=== PATIENT | male | born 1975 | race Caucasian/White ===

== ENCOUNTER 2021-01-16 09:46 | Outpatient (REF) | payer OTHER, SELFPAY ==
[2021-01-16 10:40] LABS: MANUAL DIFF FLAG NO
[2021-01-16 10:44] LABS: Basophils Percent Auto 0.2 % (0-2); Eosinophils Absolute Auto 0.1 X10*3/uL (0.0-0.4); Eosinophils Percent Auto 2.9 % (0-4); Hematocrit 45.9 % (42-52); Hemoglobin 15.8 g/dl (14.0-18.0); Imm Gran Abs Auto 0.01 X10*3/uL (0.00-0.03); Imm Gran Pct Auto 0.2 % (0.0-0.4); Lymphocytes Absolute Auto 1.5 X10*3/uL (1.2-4.9); Lymphocytes Percent Auto 30.1 % (20-40); Mean Corpuscular HGB Conc 34.4 g/dl (31.0-36.0); Mean Corpuscular Volume 87.3 fL (80-98); Mean Platelet Volume 10.8 fL (9.4-12.4); Monocytes Absolute Auto 0.4 X10*3/uL (0.1-1.2); Monocytes Percent Auto 8.7 % (2-11); Neutrophils Absolute Auto 2.8 X10*3/uL (2.0-8.3); Neutrophils Percent Auto 57.9 % (45-73); Platelet Count 179 X10*3/uL (160-400); Red Blood Count 5.26 X10*6/uL (4.60-5.80); Red Cell Distribution Width 12.1 % (11.0-16.0); White Blood Count 4.8 X10*3/uL (4.8-10.8)
[2021-01-16 11:06] LABS: Alanine Aminotransferase 31 U/L (0-40); Albumin Level 4.6 g/dL (3.5-5.0); Alkaline Phosphatase 72 U/L (39-117); Anion Gap 12 (12-20); Aspartate Amino Transferase 17 U/L (5-37); Bilirubin Total 0.7 mg/dL (0.0-1.0); Blood Urea Nitrogen 13 mg/dL (9-16); Calcium 9.8 mg/dL (8.4-10.2); Carbon Dioxide 27 mmol/L (22-29); Chloride 104 mmol/L (96-108); Cholesterol 187 mg/dL; Estimated Glomerular Filt Rate > 60; Glucose Fasting 117 mg/dL (60-99); HDL Cholesterol 44 mg/dL; LDL Cholesterol Calculated 114 mg/dl; Potassium 4.4 mmol/L (3.3-5.1); Sodium 139 mmol/L (135-145); Total Protein 7.3 g/dL (6.5-8.0); Triglycerides 145 mg/dL
== END 2021-01-16 09:47 | disposition home or self-care (01) ==
LOC: HO.LAB 09:46
PROVIDERS: PCP Internal Medicine; Visit Provider Internal Medicine
DX: Z00.00 Encounter for general adult medical examination without abnormal findings (principal); Z82.49 Family history of ischemic heart disease and other diseases of the circulatory system
CPT/HCPCS: 36415; 80053; 80061; 85025

== ENCOUNTER 2023-12-29 12:13 | Outpatient (REF) | payer BC, SELFPAY ==
[2023-12-29 12:34] LABS: MANUAL DIFF FLAG NO
[2023-12-29 13:44] LABS: Basophils Percent Auto 0.4 % (0-2); Eosinophils Absolute Auto 0.1 X10*3/uL (0.0-0.4); Hematocrit 44.6 % (42.0-52.0); Hemoglobin 15.7 g/dl (14.0-18.0); Imm Gran Abs Auto 0.01 X10*3/uL (0.00-0.03); Imm Gran Pct Auto 0.2 % (0.0-0.4); Lymphocytes Absolute Auto 1.4 X10*3/uL (1.2-4.9); Mean Corpuscular HGB Conc 35.2 g/dl (31.0-36.0); Mean Corpuscular Hemoglobin 30.4 pg (27.0-33.0); Mean Corpuscular Volume 86.3 fL (80.0-98.0); Mean Platelet Volume 10.9 fL (9.4-12.4); Monocytes Absolute Auto 0.4 X10*3/uL (0.1-1.2); Monocytes Percent Auto 7.6 % (2-11); Neutrophils Absolute Auto 2.7 x10*3/uL (2.0-8.3); Neutrophils Percent Auto 57.8 % (45-73); Platelet Count 177 X10*3/uL (160-400); Red Blood Count 5.17 X10*6/uL (4.60-5.80); Red Cell Distribution Width 12.1 % (11.0-16.0); White Blood Count 4.6 X10*3/uL (4.8-10.8)
[2023-12-29 13:58] LABS: Alanine Aminotransferase 34 U/L (0-40); Albumin Level 4.4 g/dL (3.5-5.0); Alkaline Phosphatase 66 U/L (39-117); Anion Gap 10 (12-20); Aspartate Amino Transferase 17 U/L (5-37); Bilirubin Total 0.5 mg/dL (0.0-1.0); Blood Urea Nitrogen 12 mg/dL (9-16); Calcium 9.6 mg/dL (8.4-10.2); Carbon Dioxide 28 mmol/L (22-29); Chloride 106 mmol/L (96-108); Cholesterol 195 mg/dL (<200); Estimated Glomerular Filt Rate > 60; Glucose Random 110 mg/dL (60-115); HDL Cholesterol 42 mg/dL (>40); LDL Cholesterol Calculated 116 mg/dL (<100); Magnesium 2.2 mg/dL (1.6-2.6); Potassium 4.2 mmol/L (3.3-5.1); Sodium 140 mmol/L (135-145); Total Protein 7.3 g/dL (6.5-8.0); Triglycerides 188 mg/dL (<150)
== END 2023-12-29 12:14 | disposition home or self-care (01) ==
LOC: HO.LAB 12:13
PROVIDERS: PCP Internal Medicine; Visit Provider Internal Medicine
DX: E78.00 Pure hypercholesterolemia, unspecified (principal); K21.9 Gastro-esophageal reflux disease without esophagitis; R63.5 Abnormal weight gain; G25.81 Restless legs syndrome; Z86.79 Personal history of other diseases of the circulatory system
CPT/HCPCS: 36415; 80053; 80061; 83735; 85025

== ENCOUNTER 2025-03-03 13:57 | Outpatient (REF) | payer BC, SELFPAY ==
[2025-03-03 14:35] LABS: MANUAL DIFF FLAG NO
[2025-03-03 15:29] LABS: Hematocrit 44.9 % (42.0-52.0); Hemoglobin 15.4 g/dl (14.0-18.0); Imm Gran Abs Auto 0.03 X10*3/uL (0.00-0.03); Imm Gran Pct Auto 0.5 % (0.0-0.4); Lymphocytes Absolute Auto 1.3 X10*3/uL (1.2-4.9); Mean Corpuscular HGB Conc 34.3 g/dl (31.0-36.0); Mean Corpuscular Hemoglobin 29.8 pg (27.0-33.0); Mean Corpuscular Volume 87.0 fL (80.0-98.0); NRBC Abs Auto 0.000 X10*3/uL (0.0-0.012); NRBC Pct Auto 0.0 /100WBC (0.0-0.2); Platelet Count 162 X10*3/uL (160-400); Red Blood Count 5.16 X10*6/uL (4.60-5.80); White Blood Count 5.6 X10*3/uL (4.8-10.8)
[2025-03-03 15:54] LABS: Total Hemoglobin (HGBA1C) 4038.0015 umol/L
[2025-03-03 16:06] LABS: Alanine Aminotransferase 48 U/L (0-40); Albumin Level 4.6 g/dL (3.5-5.0); Alkaline Phosphatase 77 U/L (39-117); Anion Gap 12 (12-20); Aspartate Amino Transferase 25 U/L (5-37); Blood Urea Nitrogen 13 mg/dL (9-16); Calcium 10.0 mg/dL (8.4-10.2); Carbon Dioxide 29 mmol/L (22-29); Chloride 104 mmol/L (96-108); Cholesterol 214 mg/dL (<200); Estimated Glomerular Filt Rate > 60; HDL Cholesterol 43 mg/dL (>40); Potassium 4.0 mmol/L (3.3-5.1); Sodium 141 mmol/L (135-145); Total Protein 7.5 g/dL (6.5-8.0); Triglycerides 353 mg/dL (<150)
[2025-03-04 03:29] LABS: Syphilis Screen Nonreactive (Nonreactive)
[2025-03-04 03:52] LABS: HBS Num1 0.00 mIU/mL (0-7.99); HBc Num1 0.06 S/CO (0.00-0.79); HBsAGNum1 0.51 S/CO (0.00-0.99); HIV Num 1 0.04 S/CO (0.00-0.99); Hepatitis A Antibody IgM 0.17 Index (0-0.79); Hepatitis B Surface Antigen Negative (Negative); ~HepC Num1 0.08 S/CO (0.00-0.79); ~Hepatitis A Antibody IgM Nonreactive (Nonreactive); ~Hepatitis B Surface Antibody NONREACTIVE (Nonreactive); ~Hepatitis C Antibody Nonreactive (Nonreactive)
== END 2025-03-03 13:58 | disposition home or self-care (01) ==
LOC: HO.LAB 13:57
PROVIDERS: PCP Student in an Organized Health Care Education/Training Program; Visit Provider Student in an Organized Health Care Education/Training Program
DX: Z76.89 Persons encountering health services in other specified circumstances (principal); Z13.1 Encounter for screening for diabetes mellitus; H91.90 Unspecified hearing loss, unspecified ear; G47.33 Obstructive sleep apnea (adult) (pediatric)
CPT/HCPCS: 36415; 80053; 80061; 82306; 83036; 84443; 85025; 86704; 86706; 86709; 86780; 86803; 87340; 87389; 96127

== ENCOUNTER 2025-03-03 13:57 | Outpatient (AMB) | payer BC, SELFPAY ==
--- NOTE | 2025-03-03 13:59 | A.OFFPC_ITS ---
Vital Signs 03/03/25 14:02 Height 5 ft 10 in Weight 230 lb BMI 33.0 BP 122/54 L Blood Pressure Location Rt brachial Position Sitting Respiration 18 Pulse 106 H Pulse Source Pulse Oximeter Temp 97.5 F Temp Source Temporal Artery Scan Pulse Oximetry (%) 98 Oxygen Delivery Method Room Air Intake Visit Reasons: Annual / Dr Huynh Wan Support Specialist Required: No Accompanied by: Self / Same As Patient Allergies No Known Allergies Allergy (Verified 03/03/25 13:59) Tobacco use date assessed: 03/03/25 HPI HPI Comments History of Present Illness Details The patient is a 49-year-old male presenting with concerns about sleep apnea and associated symptoms. He reported having had a diagnosis of sleep apnea previously and is using a CPAP machine regularly. The patient mentioned that his use of CPAP is nightly, and he cannot imagine sleeping without it, indicating a level of dependency and adaptation to the treatment over time. During the visit, he also expressed concerns related to potential REM Sleep Behavior Disorder symptoms, as described by his . She has noticed instances where the patient appears to spaz out during sleep, occasionally resulting in striking her in his sleep. The patient's inquiry was whether these actions were of normal concern or needed further investigation. The conversation suggested these episodes are periodic and may be linked to REM Sleep Behavior Disorder, commonly associated with certain symptoms during the REM phase of sleep. The chronic management of the patient's sleep apnea with CPAP appears satisfactory with no additional acute complaints or modifications needed regarding the current treatment strategy. The patient did not report additional underlying medical conditions affecting his overall health. 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 1. Little interest or pleasure in doing things: not at all 2. Feeling down, depressed, or hopeless: not at all 3. Trouble falling or staying asleep, or sleeping too much: not at all 4. Feeling tired or having little energy: not at all 5. Poor appetite or overeating: not at all 6. Feeling bad about yourself - or that you are a failure or have let yourself or your family down: not at all 7. Trouble concentrating on things, such as reading the newspaper or watching television: not at all 8. Moving or speaking so slowly that other people could have noticed. Or the opposite - being so fidgety or restless that you have been moving around a lot more than usual: not at all 9. Thoughts that you would be better off or of hurting yourself in some way: not at all Total score: 0 Depression Screening Interpretation: Negative Depression Screening Done: Yes 18729 - PHQ-9 Billing: Yes Source: Developed by Drs. Denzel Bauer, Mere Moe, Hiram Yeh and colleagues, with an educational narendra from [employer]. Thrive Questionnaire Date Thrive assessed: 03/03/25 I am a: Patient What is your living situation today?: I have a steady place to live Within the past 12 months, did the food you bought not last and you didn't have the money to get more?: Never true Within the past 12 months, did you worry whether your food would run out before you got money to buy more?: Never true Do you have trouble paying for medicines?: No Do you have trouble getting transportation to medical appointments?: No Do you have trouble paying your heating and electricity bill?: No Do you have trouble taking care of your child, family member or friend?: No Do you have trouble with day-to-day activities such as bathing, preparing meals, shopping, managing finances, etc.?: No Are you currently unemployed and looking for a job?: No Are you interested in more education?: No THRIVE Score: 0 AUDIT C Alcohol Use Questionnaire (AUDIT-C) 1. How often do you have a drink containing alcohol?: Monthly or less 2. How many drinks containing alcohol do you have on a typical day when you are drinking?: 1 or 2 Total Score: 1 Score Reviewed/Action Taken: Yes UBALDO-7 AMB Questionnaire UBALDO-7 Date UBALDO - 7 assessed: 03/03/25 Feeling nervous, anxious, or on edge: 0 = Not at all Not being able to stop or control worryin = Not at all Worrying too much about different things: 0 = Not at all Trouble relaxin = Not at all Being so restless that it is hard to sit still: 0 = Not at all Becoming easily annoyed or irritable: 0 = Not at all Feeling afraid as if something awful might happen: 0 = Not at all Total UBALDO-7 score (0-4 normal; 5-9 mild; 10-14 moderate; 15-21 severe): 0 Source: Developed by Drs. Denzel Bauer, Mere Moe, Hiram Yeh and colleagues, with an educational narendra from [employer]. UBALDO-7 Assessment Billing UBALDO-7 Assessment Tool: UBALDO-7 Assessment 50730 Review of Systems Const Details: - General: Denies recent significant health changes except as mentioned - Pulmonary: Reports use of CPAP for sleep apnea - Sleep: Reports REM sleep behavior disorder symptoms as observed by his - Cardiovascular: Denies current chest pain or symptoms other than reported family history All systems reviewed & are unremarkable except as noted in HPI and below Physical exam (Primary Care) Vital Signs: Last Vital Signs Temp 97.5 F 03/03/25 14:02 Pulse 106 H 03/03/25 14:02 Resp 18 03/03/25 14:02 BP 122/54 L 03/03/25 14:02 Pulse Ox 98 03/03/25 14:02 Oxygen Delivery Method Room Air 03/03/25 14:02 BMI result Body Mass Index 33.0 Tobacco/Smoking Status: Tobacco use Status Tobacco use date assessed 03/03/25 03/03/25 14:05 Patient Tobacco Use Status Never used Tobacco 03/03/25 14:05 e-Cigarette/Vaping Use Never Used 03/03/25 14:05 Depression Screening Interpretation: Negative Const Other: General: +Alert and oriented, Well nourished, No acute distress. Eye: Pupils are equal, round and reactive to light, Intact accommodation, Extraocular movements are intact, Normal conjunctiva, Vision unchanged. HENT: Normocephalic, Atraumatic, Tympanic membranes are clear, Hearing concerns noted, Oral mucosa is moist, No pharyngeal erythema, Ear canals patent. Respiratory: Lungs CTA bilaterally, No wheeze, Respirations are non-labored. Cardiovascular: Regular rate, Regular rhythm, S1 auscultated, S2 auscultated, No murmur, Good pulses equal in all extremities, Normal peripheral perfusion, No edema. Gastrointestinal: Soft, Non-tender, Non-distended, Normal bowel sounds, No organomegaly. Musculoskeletal: Normal range of motion, Normal strength, No tenderness, No swelling, No deformity, Normal gait. Integumentary: Warm, Dry, [place], Intact. Neurologic: Alert, Oriented, Normal sensory, Normal motor function, No focal defects, Cranial Nerves II-XII are grossly intact, Normal deep tendon reflexes. Psychiatric: Cooperative, Appropriate mood & affect, Normal judgment. Coding Level of Care Code New Pt Prev Care 40-64y(28302) Diagnoses Establishing care with new doctor, encounter for Z76.89 Hearing difficulty, unspecified laterality H91.90 Laterality: unspecified laterality STANLEY (obstructive sleep apnea) G47.33 Additional Codes PHQ-9 - 99983 - PHQ-9 Billing: Yes ([id number]) UBALDO-7 Assessment Billing - UBALDO-7 Assessment Tool: UBALDO-7 Assessment 34041 ([id number]) Assessment & Plan Assessment & Plan (1) Establishing care with new doctor, encounter for: Code(s): Z76.89 - Persons encountering health services in other specified circumstances Plan: - Obtain baseline labs (2) Hearing difficulty: Comment: - Endorses missing words at home - Audiology referral sent Code(s): H91.90 - Unspecified hearing loss, unspecified ear Category: Medical Qualifiers: Laterality: unspecified laterality Qualified Code(s): H91.90 - Unspecified hearing loss, unspecified ear (3) STANLEY (obstructive sleep apnea): Comment: - Continued CPAP therapy advised. - Monitor patient's adaptation and comfort with nightly use. Code(s): G47.33 - Obstructive sleep apnea (adult) (pediatric) Category: Medical Plan During the consultation, we discussed the patient's ongoing management of sleep apnea, including effective adherence to CPAP therapy. I provided reassurance regarding the management of his REM Sleep Disorder symptoms, given their current intermittent nature, and advised observation. The importance of health ma intenance interventions such as blood tests and adherence to new screening guidelines for age-related conditions like colon cancer were emphasized. The patient was informed of the importance of ongoing monitoring and potential follow-up should symptoms or test results indicate further concerns. We also covered routine preventative care, including colon cancer screening, with emphasis on updated guidelines. Orders: Orders Hemoglobin A1c Today Z76.89 - Persons encountering health services in other specified circumstances Hepatitis A,B,C Profile Today Z76.89 - Persons encountering health services in other specified circumstances Vitamin D 25-OH Total Today Z76.89 - Persons encountering health services in other specified circumstances Complete Blood Count Auto Diff Today Z76.89 - Persons encountering health services in other specified circumstances Comprehensive Met. Panel Today Z76.89 - Persons encountering health services in other specified circumstances HIV Ab/Ag Today Z76.89 - Persons encountering health services in other specified circumstances Lipid Panel Today Z76.89 - Persons encountering health services in other specified circumstances Syphilis Screen Today Z76.89 - Persons encountering health services in other specified circumstances TSH reflex Free T4 Today Z76.89 - Persons encountering health services in other specified circumstances Referrals Audiology Referral H91.90 - Unspecified hearing loss, unspecified ear Open Access Screening Colonoscopy Referral Z12.11 - Encounter for screening for malignant neoplasm of colon Patient Instructions: - Continue using CPAP machine every night as discussed. - Monitor any changes in sleep disorder symptoms; report severe issues. - Complete lab work as advised for cholesterol, sugars, and thyroid levels. - Follow guidelines for colon cancer screening this year. - Stay up to date with online portal to track health management and test results.
[2025-03-03 14:02] VITALS: BP 122/54; PULSE 106; RESP 18; TEMP 36.4; O2SAT 98; BMI 33.0
== END 2025-03-03 15:39 | disposition home or self-care (01) ==
LOC: HO.HMCHD 13:57
PROVIDERS: PCP Student in an Organized Health Care Education/Training Program; Visit Provider Student in an Organized Health Care Education/Training Program
DX: Z00.00 Encounter for general adult medical examination without abnormal findings (principal); Z76.89 Persons encountering health services in other specified circumstances; G47.33 Obstructive sleep apnea (adult) (pediatric); H91.90 Unspecified hearing loss, unspecified ear